=== PATIENT | male | born 1950 | race Caucasian/White ===

== ENCOUNTER → 2018-06-24 | Outpatient (CLI) | payer MEDICARE, OTHER ==
[~2018-06-24] MED LIST: ASPIRIN325 PO; BISOPROLOL FUMAR5 MG PO; HYDROCHLOROTH12.5 M1 PO; IBUPROFEN 400400 M2 PO; LIPITOR 20 MG T20 M1 PO; LISINOPRIL20 MG PO; MULTIVITAMINS1 EAC7 PO; NORVASC5 MG PO; PROTONIX40 M1 PO; VITAMIN D32000 UNI1 PO
== END ==
LOC: M.MRI 13:00
DX: S83.241A Other tear of medial meniscus, current injury, right knee, initial encounter (principal); S83.281A Other tear of lateral meniscus, current injury, right knee, initial encounter; M17.11 Unilateral primary osteoarthritis, right knee; M25.461 Effusion, right knee; M71.21 Synovial cyst of popliteal space [Baker], right knee; M25.761 Osteophyte, right knee; X58.XXXA Exposure to other specified factors, initial encounter; Y93.89 Activity, other specified; Y92.89 Other specified places as the place of occurrence of the external cause; Y99.8 Other external cause status

== ENCOUNTER 2018-07-20 08:37 | Inpatient (IN) | payer MEDICARE, OTHER ==
[2018-07-08 09:34] LABS: PROTIME 10.6 Seconds (9.20-11.50)
[2018-07-08 09:37] LABS: URINE BILIRUBIN NEGATIVE (Negative); URINE BLOOD TRACE (Negative); URINE CLARITY CLEAR; URINE COLOR YELLOW; URINE GLUCOSE-RANDOM NEGATIVE (Negative); URINE KETONES NEGATIVE (Negative); URINE LEUKOCYTES-REFLEX NEGATIVE (Negative); URINE NITRITE-REFLEX NEGATIVE (Negative); URINE PROTEIN NEGATIVE (Negative); URINE UROBILINOGEN 0.2 E.U./dl (0.2-1.0)
[2018-07-08 09:39] LABS: ALBUMIN 3.6 g/dL (3.4-5.0); CALCIUM 8.2 mg/dL (8.5-10.1); POTASSIUM 3.9 mmol/L (3.5-5.1); TOTAL BILIRUBIN 0.8 mg/dL (<0.1-1.0); TOTAL PROTEIN 6.4 g/dL (6.4-8.2)
--- NOTE | 2018-07-08 09:48 | EKG ---
[place] [address] ELECTROCARDIOGRAM REPORT Name: PURVI ALAN Room: PRE IN ..#: [id number] Admission: Attend Phys: Marley Agarwal Discharge: Date of : 46 Report #: [id number] THIS REPORT FOR: //name// [facility] Test Date: 2018-07-08 Test Time: 09:22:13 Pat Name: PURVI ALAN Department: Room: Gender: Electronic Systems Technician: [facility] : 1950 Requested By: Ryan Stauffer Order Number: [id number] Reading MD: Doug Li Measurements Intervals [place] Rate: 51 P: 32 MI: 178 QRS: -39 QRSD: 106 T: 33 QT: 454 QTc: 419 Interpretive Statements Sinus rhythm Left axis deviation No previous ECG available for comparison Electronically Signed On 07-08-2018 9:48:26 CDT by Doug Li [email or web address] <ELECTRONICALLY SIGNED> By: Doug Li MD, [facility] 07/08/18 0948 0922 09 Doug Li MD, FACC /EPI
[2018-07-08 10:44] LABS: HEMOGLOBIN 15.2 gm/dL (14.0-18.0); MCH 32.2 pg (26.0-34.0); MCHC 34.7 g/dL (28.0-37.0); MPV 9.1 fl. (7.2-11.1); RBC 4.73 mil/uL (4.50-6.00); RDW-CV 14.1 % (10.5-14.5); WBC 6.4 thou/uL (4.0-11.0)
[~2018-07-20] VITALS: Ht 177.8 cm; Wt 120.2 kg
--- NOTE | ~2018-07-20 | OP ---
[facility] [address] [place] [address] OPERATIVE REPORT Name: PURVI ALAN Room: [facility] IN M.R.#: [id number] Admission: 07/20/18 Attend Phys: Marley Agarwal Discharge: Date of : 46 Report #: [id number] THIS REPORT FOR: //name// CC: Андрей Whitney DATE OF SERVICE: 07/20/2018 PREOPERATIVE DIAGNOSIS: Right knee osteoarthritis. POSTOPERATIVE DIAGNOSIS: Right knee osteoarthritis. PROCEDURE: Right total knee arthroplasty. SURGEON: Ryan Stauffer II, DO. ELECTRICAL WIRING LINEMAN: ARNAV Gallegos. ANESTHESIA: General endotracheal. ESTIMATED BLOOD LOSS: 75 mL. ANTIBIOTICS: Ancef preoperatively. DRAINS: Medium Hemovac. COMPLICATIONS: None. CONDITION: Stable to recovery room. IMPLANTS: Listed in operative record and progress note. BRIEF HISTORY: The patient was seen in the preoperative area. Preoperative H and P was performed. Site was marked, questions were answered. Risks and benefits were discussed with the patient in detail about surgery and the patient wished to proceed assuming all risks. OPERATIVE PROCEDURE: The patient was taken to the operative suite and placed supine on the OR table and given appropriate anesthesia. A well-padded tourniquet applied to the upper thigh, which was inflated to 300 mmHg after gravity exsanguination. The operative knee was sterilely prepped and draped. Surgery began by midline incision. This was carried down through subcutaneous tissues. A medial parapatellar arthrotomy was performed and carried down to bone. The patella was then everted and excess soft tissue removed from around the femur. Femoral cutting block was then applied, checked with drop izaiah for [facility] [address] [place] [address] OPERATIVE REPORT Name: PURVI ALAN Room: [address] IN M.R.#: [id number] Admission: 07/20/18 Attend Phys: Marley Agarwal Discharge: Date of : 46 Report #: [id number] rotational alignment, pinned into appropriate position and appropriate cuts were made. A 4-in-1 cutting block was then applied, checked for rotational alignment, pinned into appropriate position and appropriate cuts were made. The tibia was then exposed. Excess meniscus was removed. Retractor was placed along the collateral ligaments. The tibial cutting block was then applied and pinned into appropriate position, checked with drop izaiah for rotational alignment and slope and appropriate cut was made. The tibial bone was removed. The tibial base plate was then applied, checked for rotational alignment with the drop izaiah and pinned into appropriate position. The femur was then applied and box cut was reamed. This was then trialed with the appropriate spacer, which showed excellent fit and fill and excellent stability of the knee through all range of motion. The patella was reamed in appropriate fashion and sized to appropriate size. Three peg holes were drilled. It was then trialed and showed excellent flexion and extension, excellent tracking of patella within the groove. These trials were removed. Tibia was punched in appropriate fashion. Bone ends were cleansed with Pulsavac irrigation and cement was mixed and applied to the final implants. These were then malleted into position and held the knee in extension and compressed to allow cement to cure. After it cured, excess was removed using Rotan and osteotome. The wound was then copiously irrigated and a final spacer was then malleted into position. The tourniquet was deflated. Hemostasis was obtained with electrocautery. Pain cocktail was injected. PRP gel was sprayed to internal aspects of the knee. Medium Hemovac drain was applied. Capsule was closed with 2 FiberWire and 1 Vicryl in [id number]-hl-[id number] fashion. Skin was closed with 2-0 Vicryl and running 3-0 Monocryl. Dermabond and sterile dressing applied. Quan wrap and PolarCare applied. The patient transported to recovery room in stable condition. Counts were correct throughout the procedure. By: [id number] Stauffer II, DO /nt
[2018-07-20 10:30] VITALS: BP 141/86
[2018-07-20 16:45] VITALS: BP 153/79
--- NOTE | 2018-07-20 17:03 | NUR ---
PT ALERT AND ORIENTED. PT ON 2 LITERS O2 WITH CAPNO. PT DENIES ANY PAIN AT THIS TIME FEMORAL BLOCK WAS GIVEN PRIOR TO TRANSFER HERE. PT HAS NOT VOIDED AT THIS TIME. PT HAS MUMTAZ HOSE, FOOT SCD. POLAR PACK AND HEMOVAC. 0.45% NS AT 75 IN RT HAND. FALL RISK PRECAUTIONS IN PLACE. HOURLY ROUNDING COMPLETED. WILL CONTINUE TO MONITOR.
[2018-07-20 19:50] VITALS: BP 153/81
[2018-07-21] VITALS: BP 135/74
[2018-07-21 03:53] VITALS: BP 115/79
[2018-07-21 04:10] LABS: HEMATOCRIT 39.8 % (42.0-52.0); HEMOGLOBIN 13.5 gm/dL (14.0-18.0)
[2018-07-21 04:37] LABS: CALCIUM 7.9 mg/dL (8.5-10.1); CREATININE 1.1 mg/dL (0.6-1.3); MAGNESIUM 1.9 mg/dL (1.8-2.4); POTASSIUM 4.2 mmol/L (3.5-5.1)
[2018-07-21 05:51] LABS: URINE BILIRUBIN NEGATIVE (Negative); URINE BLOOD NEGATIVE (Negative); URINE CLARITY CLEAR; URINE COLOR YELLOW; URINE GLUCOSE-RANDOM NEGATIVE (Negative); URINE KETONES NEGATIVE (Negative); URINE LEUKOCYTES NEGATIVE (Negative); URINE NITRITE NEGATIVE (Negative); URINE PROTEIN NEGATIVE (Negative); URINE SPECIFIC GRAVITY 1.015 (1.005-1.030); URINE UROBILINOGEN 0.2 E.U./dl (0.2-1.0)
--- NOTE | 2018-07-21 06:00 | NUR ---
PT REMAINED ALERT AND ORIENTED. VITALS, SpO2 STABLE WITH 2L OF OXYGEN BY NC AND CPAP. PAIN CONTROLLED WITH OXY IR. IV ANTIBIOTICS GIVEN ORDERED. NO NAUSEA OR VOMITING THIS SHIFT. PT VOIDED TWICE 175ML AND 100ML. BLADDER WAS FULL ON SCAN. STRAIGHT CATH PROVIDED WITH 1125ML RETURN. RT KNEE INCISION/ DRESSING CLEAN AND DRY. HEMO VAC IN PLACE WITH SEROSANGUINEOUS DRAINAGE. WILL CONTINUE TO MONITOR.
--- NOTE | 2018-07-21 06:30 | NUR ---
HEMOVAC DRAIN DISCONTINUED PER ORDER.
[2018-07-21 08:10] VITALS: BP 119/61
--- NOTE | 2018-07-21 12:52 | NUR ---
RECIEVED O.T. EVAL AND TX ORDER. WILL DEFER TO P.T. AT THIS TIME. PLEASE ORDER FURTHER O.T. SERVICES IF NEEDED.
--- NOTE | 2018-07-21 14:30 | NUR ---
SPOKE WITH PT. HE WAS ALERT AND ORIENTED. HE SAID HE LIVES WITH HIS . SHE WILL BE WITH HIM AT ALL TIMES TO ASSIST HIM NEEDED. HE HAS A FRONT WHEEL WALKER IN ROOM FROM HOME. DISCUSSED CPM AND POLAR MONIE. HE SAID HE IS NORMALLY INDEPENDENT AT HOME. CM CALLED IN PRESCRIPTION FOR [facility], WRITTEN TO HIS [id number]. WILL OBTAIN COPAY AND DISCUSS WITH PT. HE THINKS IT WILL BE HIGH. HE WOULD LIKE TO STAY UNTIL TOMORROW. NO DISCHARGE ORDERS AT THIS TIME. PT.CHOSE [facility]. FAXED FACE SHEET,H&P AND OP REPORT TO BELEM/LONNIE. AT DISCHARGE HH NEEDS TO BE NOTIFIED [phone] AND DISCHARGE ORDERS FAXED TO [phone].
[2018-07-21 16:22] VITALS: BP 131/71
[2018-07-21 16:44] VITALS: BP 131/71
--- NOTE | 2018-07-21 17:16 | NUR ---
ASSUMED CARE OF PATIENT AT APPROX 0730. ALERT AND ORIENTED X4. ASSESSMENT COMPLETED AND CHARTED. VSS ON ROOM AIR. PAIN HAS BEEN MANAGED WITH OXY IR AND HYDROCODONE. ANTIBIOTICS INFUSED ORDERED, THEN SALINE LOCKED. PATIENT WORKED WITH THERAPIES TODAY AND PROGRESSED TOWARD GOALS. PATIENT HAD SOME URINARY RETENTION ISSUES OVERNIGHT, UROLOGY CONSULTED. PATIENT VOIDED THIS AFTERNOON, POST VOID RESIDUAL WAS ZERO AFTER VOID. STARTED ON FLOMAX LAST NIGHT. UROLOGY WILL FOLLOW UP OUTPATIENT. FALL PRECAUTIONS IN PLACE. CALL LIGHT WITHIN REACH. HOURLY ROUNDS COMPLETED. NURSING WILL COTNINUE TO MONITOR.
[2018-07-21 20:00] VITALS: BP 154/84
[2018-07-22 04:00] VITALS: BP 159/78
[2018-07-22 04:45] LABS: HEMATOCRIT 33.9 % (42.0-52.0); HEMOGLOBIN 11.8 gm/dL (14.0-18.0)
--- NOTE | 2018-07-22 05:02 | NUR ---
PT REMAINED ALERT, ORIENTED. VITALS, SpO2 STABLE. PAIN CONTROLLED WITH OXY IR. NO NAUSEA OR VOMITING. UP TO THE BATHROOM WITH MINIMUM ASSIST WITH WALKER. PT REFUSED USE OF GAITBELT. HOURLY ROUNDING COMPLETED. WILL CONTINUE TO MONITOR.
[2018-07-22 08:10] VITALS: BP 170/90
[2018-07-22] MEDS ORDERED: COLACE 100 MG100 MG PO (09:33)
[2018-07-22] MEDS ORDERED: PERCOCET PO (09:33)
[2018-07-22] MEDS ORDERED: FLOMAX0.4 MG PO (09:33)
--- NOTE | 2018-07-22 09:45 | NUR ---
COPAY FOR PT.'S [facility] IS $188. PT.SAID THEY CANNOT AFFORD THIS AMOUNT. [facility] WE HAVE DOESN'T WORK FOR MEDICARE PART D PT.'S . NOTIFIED NURSING WHO WILL CALL FOR DIFFERENT ORDER. FAXED DISCHARGE ORDERS TO [facility] . THEY WILL CALL PT.TOMORROW TO SET UP APPTS.TO SEE HIM.
--- NOTE | 2018-07-22 15:03 | NUR ---
ASSUMED CARE OF PATIENT AT APPROX 0730. ALERT AND ORIENTED X4. ASSESSMENT COMPLETED AND CHARTED. VSS ON ROOM AIR. PAIN MANAGED WITH OXY IR. NO COMPLAINTS OF NAUSEA OR SOA. PATIENT WORKED WITH THERAPIES TODAY AND PROGRESSED TOWARD GOALS. PATIENT DISCHARGED AT 1430 WITH ALL PERSONAL BELONGINGS, PRESCRIPTIONS AND DISCHARGE INFORMATION.
== END 2018-07-22 14:30 | disposition home health service (06) | DRG 470 ==
LOC: M.PRE 08:37 → M.ORTHSURG 10:06 → M.TBA 10:06 → M.PRE 13:23 → M.ORTHSURG 14:54
PROVIDERS: Internal Medicine; Orthopaedic Surgery; ADMIT Internal Medicine
PROC: 0SRC069 Replacement of Right Knee Joint with Oxidized Zirconium on Polyethylene Synthetic Substitute, Cemented, Open Approach (ICD-10-PCS; principal; 2018-07-21)
DX: M17.11 Unilateral primary osteoarthritis, right knee (principal); I10 Essential (primary) hypertension; K21.9 Gastro-esophageal reflux disease without esophagitis; Z96.652 Presence of left artificial knee joint; R33.9 Retention of urine, unspecified; J30.9 Allergic rhinitis, unspecified; Z96.642 Presence of left artificial hip joint; Z87.891 Personal history of nicotine dependence; Z79.82 Long term (current) use of aspirin; Z79.899 Other long term (current) drug therapy; Z91.09 Other allergy status, other than to drugs and biological substances